=== PATIENT | female | born 1990 | race Caucasian/White ===

== ENCOUNTER 2023-06-07 11:55 | Emergency (ER) | payer OTHER ==
[~2023-06-07] VITALS: Ht 167.6 cm; Wt 70.8 kg
[2023-06-07] MEDS ORDERED: VITAMIN D310 MCG/1 M PO (12:32)
== END 2023-06-07 14:51 | disposition home or self-care (01) ==
LOC: EMR PED 11:55 → ER 11:55 → EMR PED 13:00 → ER 14:51
DX: H60.90 Unspecified otitis externa, unspecified ear (principal)

== ENCOUNTER 2023-06-08 22:09 | Emergency (ER) | payer OTHER ==
[~2023-06-08] VITALS: Ht 167.6 cm; Wt 72.6 kg
[~2023-06-08 22:09] MED LIST: VITAMIN D310 MCG/1 M PO
[2023-06-09] MEDS ORDERED: DICLOFENAC SODI75 MG PO (00:41)
[2023-06-09] MEDS ORDERED: AMOX-CLAV 875-1 EACH PO (00:41)
[2023-06-09] MEDS ORDERED: CLOTRIMAZOLE30 ML TOP (19:18)
== END 2023-06-09 00:58 | disposition home or self-care (01) ==
LOC: ER 22:09
DX: H66.91 Otitis media, unspecified, right ear (principal)

== ENCOUNTER 2023-06-09 17:26 | Emergency (ER) | payer OTHER ==
[~2023-06-09] VITALS: Ht 167.6 cm; Wt 59.0 kg
[~2023-06-09 17:26] MED LIST changes: +AMOX-CLAV 875-1 EACH PO; +DICLOFENAC SODI75 MG PO
[2023-06-09] MEDS ORDERED: CLOTRIMAZOLE30 ML TOP (19:18)
== END 2023-06-09 19:41 | disposition home or self-care (01) ==
LOC: ER 17:26
DX: H60.91 Unspecified otitis externa, right ear (principal)